=== PATIENT | female | born 1975 | race Native Hawaiian/Other Pacific Islander ===

== ENCOUNTER 2021-11-16 08:25 | Outpatient (CLI) | payer OTHER | END 2021-11-16 21:56 | disposition home or self-care (01) | LOC: MAMMO 08:25 | PROVIDERS: ATTEND Obstetrics & Gynecology | DX: Z12.31 Encounter for screening mammogram for malignant neoplasm of breast (principal) ==

== ENCOUNTER 2022-01-11 09:59 | Outpatient (CLI) | payer OTHER | END 2022-01-11 19:53 | disposition home or self-care (01) | LOC: US 09:59 → MAMMO 10:30 → US 19:53 | PROVIDERS: ATTEND Obstetrics & Gynecology | DX: R92.2 Inconclusive mammogram (principal) ==